=== PATIENT | male | born 1965 ===

== ENCOUNTER 2016-10-27 14:03 | Emergency (ER) | payer OTHER ==
[2016-10-27 14:03] VITALS: BMI 25.7
[2016-10-27 15:03] LABS: BASO # 0.1 K/uL (0.0-0.2); BASO % 0.6 % (0.0-2.0); EOS # 0.2 K/uL (0.0-0.7); EOS % 1.9 % (0.0-4.0); HEMATOCRIT 47.4 % (35.0-51.0); LYMPH # 1.8 K/uL (1.0-4.3); LYMPH % 20.8 % (20.0-40.0); MEAN CORPUSCULAR HEMOGLOBIN 30.8 pg (27.0-31.0); MEAN CORPUSCULAR HGB CONC 32.9 g/dL (33.0-37.0); MEAN PLATELET VOLUME 11.5 fL (7.2-11.7); MONO # 0.5 K/uL (0.0-0.8); MONO % 6.2 % (0.0-10.0); WHITE BLOOD COUNT 8.5 K/uL (4.8-10.8)
[2016-10-27 15:07] LABS: MEAN CELL VOLUME 93.4 fL (80.0-94.0)
--- NOTE | 2016-10-27 16:06 | C.PDOC ---
History Of Present Illness 51 y/o male brought in by textile technologist presents to the ED with complains of hallucinations, SI. Pt is not currently taking any psych meds. Pt denies any other complaints at this time. Time Seen by Provider: 10/27/16 14:31 Chief Complaint (Nursing): Psychiatric Evaluation History Per: Patient History/Exam Limitations: no limitations Current Symptoms Are (Timing): Still Present Severity: Mild Involuntary Hold By: Local Law Enforcement Recent travel outside of the [place]: No Past Medical History Reviewed: Historical Data, Nursing Documentation, Vital Signs Vital Signs: Last Vital Signs Temp 98.1 F 10/27/16 14:11 Pulse 80 10/27/16 14:11 Resp 20 10/27/16 14:11 BP 107/72 10/27/16 14:11 Pulse Ox 95 10/27/16 16:06 - Medical History PMH: Anxiety, Arthritis, Bipolar Disorder, Depression, Hepatitis, HTN (per meds) , Schizophrenia Family History: States: Unknown Family Hx - Social History Hx Alcohol Use: No Hx Substance Use: Yes (HEROIN) - Immunization History Hx Tetanus Toxoid Vaccination: No Hx Influenza Vaccination: No Hx Pneumococcal Vaccination: No Review Of Systems Except As Marked, All Systems Reviewed And Found Negative. Constitutional: Negative for: Fever Cardiovascular: Negative for: Chest Pain Respiratory: Negative for: Shortness of Breath Gastrointestinal: Negative for: Vomiting Psych: Positive for: Suicidal ideation Physical Exam - Physical Exam Appears: Non-toxic, No Acute Distress Skin: Warm, Dry, No Rash Head: Atraumatic, Normacephalic Neck: Normal ROM Chest: Symmetrical Cardiovascular: Rhythm Regular Respiratory: Normal Breath Sounds, No Rales, No Rhonchi, No Wheezing Gastrointestinal/Abdominal: Soft, No Tenderness Extremity: Bilateral: Atraumatic Neurological/Psych: Oriented x3, Normal Speech ED Course And Treatment - Laboratory Results Result Diagrams: 10/27/16 15:00 10/27/16 15:00 Lab Interpretation: Normal (never provided urine sample) O2 Sat by Pulse Oximetry: 95 (on room air) Pulse Ox Interpretation: Normal Reevaluation Time: 16:45 (remains asymtpmatic.) - Physician Consult Information Outcome Of Conversation: 1645: d/w Crisis Workers- pt medically and psychiatrically cleared for d/c. no SI/HI @ d/c and not a candidate for detox. Medical Decision Making Medical Decision Making: homeless, substance abuse, schizophrenia, no SI/HI Disposition Doctor Will See Patient In The: Office Counseled Patient/Family Regarding: Studies Performed, Diagnosis - Disposition Disposition: HOME/ ROUTINE Disposition Time: 16:48 Condition: GOOD - Clinical Impression Clinical Impression: Schizophrenia, Alcohol abuse - Scribe Statement The provider has reviewed the documentation as recorded by the Gustabo Sauer Provider Attestation: All medical record entries made by the Gustabo were at my direction and personally dictated by me. I have reviewed the chart and agree that the record accurately reflects my personal performance of the history, physical exam, medical decision making, and the department course for this patient. I have also personally directed, reviewed, and agree with the discharge instructions and disposition.
[2016-10-27 16:40] LABS: CHLORIDE 95 mmol/L (98-107); POTASSIUM 4.1 mmol/L (3.6-5.2); SODIUM 142 mmol/L (132-148)
[2016-10-27 16:42] LABS: ALB/GLOB RATIO 1.4 (1.0-2.1); ALKALINE PHOSPHATASE 56 U/L (38-126); AST/SGOT 34 U/L (17-59); BILIRUBIN,TOTAL 0.6 mg/dL (0.2-1.3); CARBON DIOXIDE 29 mmol/L (22-30); GFR AFRICAN-AMERICAN > 60; TOTAL PROTEIN 7.7 g/dL (6.3-8.3)
[2016-10-27 16:43] LABS: ALT/SGPT 17 U/L (21-72); BLOOD UREA NITROGEN 14 mg/dL (9-20); CALCIUM 9.6 mg/dl (8.6-10.4); GLUCOSE,RANDOM 85 mg/dL (75-110)
[2016-10-27 16:44] LABS: ALCOHOL SERUM < 10 mg/dl (0-10)
[2016-10-27 17:37] VITALS: BP 133/74; PULSE 74; RESP 18; TEMP 98.5; O2SAT 99
== END 2016-10-27 17:10 | disposition home or self-care (01) ==
LOC: C.ER 14:03
DX: F20.9 Schizophrenia, unspecified (principal); F10.10 Alcohol abuse, uncomplicated; Y90.0 Blood alcohol level of less than 20 mg/100 ml

== ENCOUNTER 2016-12-15 14:41 | Inpatient (IN) | payer MEDICAID, OTHER ==
[2016-12-15 14:41] VITALS: BMI 25.7
[2016-12-15 16:16] LABS: BASO # 0.1 K/uL (0.0-0.2); BASO % 0.6 % (0.0-2.0); EOS # 0.1 K/uL (0.0-0.7); EOS % 1.3 % (0.0-4.0); HEMATOCRIT 41.4 % (35.0-51.0); LYMPH # 1.2 K/uL (1.0-4.3); LYMPH % 13.9 % (20.0-40.0); MEAN CELL VOLUME 90.8 fL (80.0-94.0); MEAN CORPUSCULAR HEMOGLOBIN 30.5 pg (27.0-31.0); MEAN CORPUSCULAR HGB CONC 33.6 g/dL (33.0-37.0); MEAN PLATELET VOLUME 10.8 fL (7.2-11.7); MONO # 0.6 K/uL (0.0-0.8); MONO % 6.5 % (0.0-10.0); RED CELL DISTRIBUTION WIDTH 14.1 % (11.5-14.5); WHITE BLOOD COUNT 8.8 K/uL (4.8-10.8)
[2016-12-15 16:21] LABS: URINE BACTERIA RARE (<OCC); URINE BILIRUBIN NEGATIVE (NEGATIVE); URINE BLOOD NEGATIVE (NEGATIVE); URINE CALCIUM OXALATE CRYSTALS MOD /hpf (<OCC); URINE GLUCOSE (UA) NORMAL (Normal); URINE KETONE TRACE mg/dL (NEGATIVE); URINE LEUKOCYTE ESTERASE NEG Leu/uL (Negative); URINE PROTEIN NEGATIVE (NEGATIVE); WBC URINE 5 /hpf (0-5)
[2016-12-15 16:22] LABS: CHLORIDE 100 mmol/L (98-107); POTASSIUM 3.5 mmol/L (3.6-5.2); SODIUM 138 mmol/L (132-148)
[2016-12-15 16:23] LABS: ALB/GLOB RATIO 1.3 (1.0-2.1); ALKALINE PHOSPHATASE 53 U/L (38-126); AST/SGOT 27 U/L (17-59); BILIRUBIN,TOTAL 0.7 mg/dL (0.2-1.3); CARBON DIOXIDE 28 mmol/L (22-30); GFR AFRICAN-AMERICAN > 60; TOTAL PROTEIN 7.5 g/dL (6.3-8.3)
[2016-12-15 16:24] LABS: ALCOHOL SERUM < 10 mg/dl (0-10); ALT/SGPT 20 U/L (21-72); BLOOD UREA NITROGEN 15 mg/dL (9-20); CALCIUM 8.6 mg/dl (8.6-10.4); GLUCOSE,RANDOM 127 mg/dL (75-110)
[2016-12-15 16:30] LABS: URINE COLOR YELLOW (YELLOW)
--- NOTE | 2016-12-15 16:32 | C.PDOC ---
History Of Present Illness 51 y/o male pmhx depression and anxiety presents to the ED with complains of feeling depressed x1.5 weeks and stating he wants to kill himself. Pt plans on overdosing on pills. Pt states he hasn't eaten much in the past week and has been shaking a lot lately; used to take klonopin 0.5 mg for anxiety, none currently. Pt admits to alcohol use, last 3 days ago and heroin last used last night. Pt denies fever, trauma, headache, chest pain, abdominal pain or any other complaints. No PMD or psychiatrist. Time Seen by Provider: 12/15/16 15:04 Chief Complaint (Nursing): Psychiatric Evaluation History Per: Patient History/Exam Limitations: no limitations Onset/Duration Of Symptoms: Days Current Symptoms Are (Timing): Still Present Modifying Factor(s): Alcohol, Narcotics Severity: Moderate Associated Symptoms: Depression, Suicidal Thoughts, Suicidal Plan Involuntary Hold By: None Recent travel outside of the [place]: No Past Medical History Reviewed: Historical Data, Nursing Documentation, Vital Signs Vital Signs: Last Vital Signs Temp 98.0 F 12/15/16 14:53 Pulse 93 H 12/15/16 14:53 Resp 18 12/15/16 15:20 BP 107/73 12/15/16 14:53 Pulse Ox 98 12/15/16 18:03 - Medical History PMH: Anxiety, Arthritis, Bipolar Disorder, Depression, Hepatitis, HTN (per meds) , Schizophrenia Family History: States: Unknown Family Hx - Social History Hx Alcohol Use: No Hx Substance Use: Yes (pt denies) - Immunization History Hx Tetanus Toxoid Vaccination: No Hx Influenza Vaccination: No Hx Pneumococcal Vaccination: No Review Of Systems Except As Marked, All Systems Reviewed And Found Negative. Constitutional: Negative for: Fever, Chills Cardiovascular: Negative for: Chest Pain Respiratory: Negative for: Shortness of Breath Gastrointestinal: Negative for: Vomiting, Abdominal Pain Musculoskeletal: Positive for: Other (several month h/o atraumatic b/l posterior ankle pain) Neurological: Negative for: Headache Psych: Positive for: Depression, Suicidal ideation Physical Exam - Physical Exam Appears: Non-toxic, Other (mild emotional distress) Skin: Warm, Dry, No Rash Head: Atraumatic, Normacephalic Oral Mucosa: Dry Neck: Normal, Normal ROM, Trachea Midline, Supple Chest: Symmetrical Cardiovascular: Rhythm Regular, No Edema, No Murmur Respiratory: Normal Breath Sounds, No Decreased Breath Sounds, No Accessory Muscle Use, No Rales, No Rhonchi, No Wheezing Gastrointestinal/Abdominal: Normal Exam, Bowel Sounds (normal), Soft, No Tenderness, No Distention, No Guarding, No Rebound Back: Normal Inspection, No CVA Tenderness, No Vertebral Tenderness Extremity: Normal ROM, Tenderness (to the posterior ankles b/l mostly to the achilles tendon), No Swelling Extremity: Bilateral: Atraumatic Neurological/Psych: Oriented x3, Normal Speech, Other (anxious, depressed mood) ED Course And Treatment - Laboratory Results Result Diagrams: 12/15/16 16:08 12/15/16 16:08 O2 Sat by Pulse Oximetry: 98 (room air) Pulse Ox Interpretation: Normal Progress Note: plan: labs, UA, klonopin, CRISIS evaluation Medical Decision Making Medical Decision Makin yo M presents to the ER for psych evaluation, feels depressed with (+) SI. Labs ordered. Pending crisis evaluation. Given klonipin 0.5 mg po and naprosyn 500 mg po. Labs reviewed. K 3.5, given KCL 40 mEq po. Patient is medically cleared for crisis evaluation. Disposition - Disposition Disposition: HOSPITALIZED Disposition Time: 18:00 Condition: STABLE - Clinical Impression Clinical Impression: Depression - PA / GUN MECHANIC / Resident Statement MD/DO has reviewed & agrees with the documentation as recorded. - Scribe Statement The provider has reviewed the documentation as recorded by the Scribaudie Sauer All medical record entries made by the Guillermoibe were at my direction and personally dictated by me. I have reviewed the chart and agree that the record accurately reflects my personal performance of the history, physical exam, medical decision making, and the department course for this patient. I have also personally directed, reviewed, and agree with the discharge instructions and disposition.
[2016-12-15] MEDS ORDERED: Potassium Chloride 20 mEq/15 ml LIQ UD PO STA (16:47)
[2016-12-15] MEDS ORDERED: Potassium Chloride 20 mEq ER Tab PO ONE (16:53)
[2016-12-15] MEDS ORDERED: Naproxen 550 mg Tab PO STA (17:59)
[2016-12-15] MEDS ORDERED: Naproxen 550 mg Tab PO ONE (18:18)
[2016-12-15 18:23] VITALS: O2SAT 99
--- NOTE | 2016-12-16 15:46 | PCM.PSYCH ---
Initial Psychiatric Evaluation - Initial Psychiatric Evaluation Type of Admission: Voluntary Legal Status: Capacity Chief Complaint (in patient's own words): "I don't feel good." History of Present Illness and Precipitating Events: The pt is seen, chart reviewed, case discussed with staff. This is a 51yo male who is here for opiate abuse and depression. 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 He states that he is single, lives alone, and has 1 child. He also says that he is on probation and his special police officer is the one who told him to go to detox. The patient states that he uses 10-15 bags of heroin a day and has been injecting since the age of 20. He denies other drugs and alcohol use but smokes 3-4 cigarettes a day. The patient states that he has the shakes and wanted to OD on pills. He has a prior suicide attempt in which he cut his hand. He says that 1 week ago he got depressed and took 15 pills but got nausea and vomited. He states that he has visual and auditory hallucinations which make him paranoid and sometimes feels like people are out to get him. Currently he states that hes not feeling good with the dose of methadone he took and is complaining of hot/cold sweats, nausea , diarrhea, decreased appetite, and weight loss. Past psych history: Schizophrenia, Suicide attempt Past medical history: Liver disease (Hepatitis?), Visual impairment (right eye) , Kidney infections Family psych history: Aunt- Schizophrenia, aggressive and violent behavior Hospitalizations: For kidney infections 4-5 times Current Medications: Active Medications Generic Name Dose Route Start Last Admin Trade Name Freq PRN Reason Stop Dose Admin Chlordiazepoxide 25 mg 12/15/16 19:17 12/15/16 21:04 Librium PO 25 mg Q6 PRN Administration s/s withdrawals Gabapentin 100 mg 12/16/16 10:00 12/16/16 13:51 Neurontin PO 100 mg TID STEPHANIE Administration Hydroxyzine HCl 50 mg 12/15/16 19:17 12/16/16 13:51 Atarax PO 50 mg Q6 PRN Administration Anxiety Ibuprofen 600 mg 12/15/16 19:17 Motrin Tab PO Q6 PRN Pain, moderate (4-7) Methadone HCl 10 mg 12/17/16 10:00 Methadone PO 12/20/16 09:59 Q24H STEPHANIE Taper Quetiapine Fumarate 50 mg 12/15/16 22:00 12/15/16 21:04 Seroquel PO 50 mg HS STEPHANIE Administration Sertraline HCl 50 mg 12/16/16 10:00 12/16/16 09:57 Zoloft PO 50 mg DAILY STEPHANIE Administration Past Psychiatric History - Past Psychiatric History History of ETOH/Drug Use: He denies alcohol use but admits to heroin use. History of Family Illness: Aunt has Schizophrenia and aggressive behavior. Pertinent Medical Hx (Current Medical&Sleep Prob, Allergies): Allergies Allergy/AdvReac Type Severity Reaction Status Date / Time No Known Allergies Allergy Verified 12/15/16 14:53 clonazePAM [Klonopin] 0.5 mg PO DAILY PRN #10 tab 04/26/15 Gabapentin [Neurontin] 300 mg PO DAILY 05/15/15 QUEtiapine [SEROquel] 200 mg PO HS 12/15/16 Sertraline [Zoloft] 100 mg PO DAILY 12/15/16 Review of Systems - Psychiatric Psychiatric: Auditory Hallucinations, Change in Appetite, Depression, Difficulty Concentrating, Hallucinations, Visual Hallucinations. absent: Homicidal Ideation, Suicidal Ideation Mental Status Examination - Personal Presentation Personal Presentation: Looks older than stated age - Affect Affect: Constricted - Motor Activity Motor Activity: Calm - Reliability in Providing Information Reliability in Providing Information: Fair - Speech Speech: Organized - Mood Mood: Depressed - Formal Thought Process Formal Thought Process: Hallucinations, Paranoia - Hallucinations/Delusions Hallucinations: Visual, Auditory - Cognitive Functions Orientation: Person, Place, Situation, Time Attention/Concentration: Attentive Estimate of Intelligence: Average Judgement: Intact, as evidence by: Insight regarding need for hospitalization Memory: Recent intact, as evidence by: Ability to recall events of the day, Remote intact, as evidenced by: Abilit to recall sig. life events - Risk Risk: Diminished functioning - Strength & Assets Inventory Strength & Assets Inventory: Cooperative - Limitations Limitations: Living alone DSM 5 DX - DSM 5 DSM 5 Diagnosis: Major Depressive d/o - recurrent, severe with psychotic features Opioid withdrawal Opioid use d/o - severe Alcohol use d/o - Recommended/Plan of Treatment Treatment Recommendations and Plan of Treatment: Support and psychoeducation daily Attend groups and activities daily After care planning by LETICIA [place] and CBT Methadone taper Seroquel for psychotic features Zoloft for depression 34 min Projected ELOS: 6 days Prognosis: Good with treatment - Smoking Cessation Smoking Cessation Initiated: Yes
--- NOTE | 2016-12-17 15:39 | PCM.PYCHPN ---
Psychiatric Progress Note - Psychiatric Progress Note Patient seen today, length of contact: 17 min Patient Chief Complaint: "I am not sleeping well" Problems Identified/Issues Discussed: The pt is seen, chart reviewed, case discussed with staff. He states that he is having trouble staying asleep at night but is otherwise doing fine. He also complains of tendonitis in his lower extremities. He denies any hallucinations and requested an increased dose of Seroquel. The pt is compliant with medications and reports no side-effects. Symptoms are improving but needs more time to stabilize. After care discussed, support and psychoeducation given. Medication Change: Yes (detox changes, increase seroquel) Medical Record Reviewed: Yes Mental Status Examination - Cognitive Function Orientation: Person, Place, Situation, Time Memory: Intact Attention: WNL Concentration: WNL Association: WNL Fund of Knowledge: Poor - Mood Mood: Depressed - Affect Affect: Constricted - Speech Speech: Appropriate - Formal Thought Process Formal Thought Process: No Impairment - Suicidal Ideation Suicidal Ideation: No - Homicidal Ideation Homicidal Ideation: No Goal/Treatment Plan - Goal/Treatment Plan Need for Continued Stay: Discharge may exacerbated symptoms, Severe functional impairment Progress Toward Problem(s) and Goals/Treatment Plan: Support and psychoeducation daily Attend groups and activities daily After care planning by LETICIA [place] and CBT Methadone taper Seroquel for psychotic features and sleep, 100 mg today, 200 tomorrow Zoloft for depression
--- NOTE | 2016-12-18 14:51 | PCM.PYCHPN ---
Psychiatric Progress Note - Psychiatric Progress Note Patient seen today, length of contact: 17 min Patient Chief Complaint: "I feel 'so-so'" Problems Identified/Issues Discussed: The pt is seen, chart reviewed, case discussed with staff. This is a 51yo male who is here for opiate abuse and depression. The patient states that he uses 10-15 bags of heroin a day and has been injecting since the age of 20. He denies other drugs and alcohol use but smokes 3-4 cigarettes a day. He Reports withdrawal symptoms including poor energy, anxiety and body aches. He complains his anxiety is becoming too much. He says he only slept a little yesterday, having woken up 3 times last night from anxiety. He is experiencing the shakes, is easily startled by noise, and states that his medications arent helping him. The patient appears to be distracted, disheveled , and generally uncomfortable. The pt is compliant with medications and reports no side-effects. Symptoms are improving but needs more time to stabilize. After care discussed, support and psychoeducation given. Medication Change: Yes (detox changes, increase seroquel) Medical Record Reviewed: Yes Mental Status Examination - Cognitive Function Orientation: Person, Place, Situation, Time Memory: Intact Attention: WNL Concentration: WNL Association: WNL Fund of Knowledge: Poor - Mood Mood: Depressed - Affect Affect: Constricted - Speech Speech: Appropriate - Formal Thought Process Formal Thought Process: No Impairment - Suicidal Ideation Suicidal Ideation: No - Homicidal Ideation Homicidal Ideation: No Goal/Treatment Plan - Goal/Treatment Plan Need for Continued Stay: Discharge may exacerbated symptoms, Severe functional impairment Progress Toward Problem(s) and Goals/Treatment Plan: Support and psychoeducation daily Attend groups and activities daily After care planning by LETICIA [place] and CBT Methadone taper Seroquel 200 mg Zoloft for depression - Smoking Cessation Smoking Cessation Initiated: No
--- NOTE | 2016-12-19 14:08 | PCM.PYCHPN ---
Psychiatric Progress Note - Psychiatric Progress Note Patient seen today, length of contact: 15 minutes Patient Chief Complaint: I'm not feeling better, I still feel anxiety in the morning. Problems Identified/Issues Discussed: Patient seen. Chart reviewed. Case discussed with staff. Issues related to illness and treatment were discussed with the patient. Patient reported not feeling better specialty in the morning. Reported he wakes up every day in the morning with anxiety. According to patient his anxiety is very high in the morning after breakup. Otherwise feeling little better. Still patient who is disheveled. Patient may need more time for stabilization. At the time of evaluation, patient was awake alert oriented 3, had no delusions, no auditory or visual hallucinations, no suicidal ideations homicidal ideations. Medical Problems: Liver disease (Hepatitis?), Visual impairment (right eye), Kidney infections Diagnostic Results: Reviewed DSM 5 Symptoms Update: Some improvement with treatment Medication Change: No Medical Record Reviewed: Yes Mental Status Examination - Cognitive Function Orientation: Person, Place, Situation, Time Memory: Intact Attention: WNL Concentration: WNL Association: WNL Fund of Knowledge: WNL Decription of patient's judgement and insights: Better - Mood Mood: Depressed - Affect Affect: Other (Appropriate) - Speech Speech: Appropriate - Formal Thought Process Formal Thought Process: No Impairment Psychotic Thoughts and Behaviors: None - Suicidal Ideation Suicidal Ideation: No - Homicidal Ideation Homicidal Ideation: No Goal/Treatment Plan - Goal/Treatment Plan Need for Continued Stay: Remain at risks for inpatient hospitalization, Discharge may exacerbated symptoms, Severe functional impairment Progress Toward Problem(s) and Goals/Treatment Plan: Patient education Supportive therapy Will increase dose of Zoloft to 100 mg from 50 mg continue rest of the treatment as before Wants to go to [facility] after discharge from the hospital for follow-up appointment Estimated Date of D/C: 12/22/16 - Smoking Cessation Smoking Cessation Initiated: No
--- NOTE | 2016-12-20 13:22 | PCM.PYCHPN ---
Psychiatric Progress Note - Psychiatric Progress Note Patient seen today, length of contact: 15 minutes Patient Chief Complaint: I'm not feeling better, I still feel anxiety in the morning. Problems Identified/Issues Discussed: Patient seen. Chart reviewed. Case discussed with staff. Issues related to illness and treatment were discussed with the patient. Patient reported not feeling better specialty in the morning. Reported he wakes up every day in the morning with anxiety. Explored further in patient reported that he walks a lot, cannot sit still and that makes him nervous which she thinks is anxiety. It appears that patient has EPS/akathisia .we will start Cogentin and observe. Otherwise feeling little better. Still patient who is disheveled. Patient may need more time for stabilization. At the time of evaluation, patient was awake alert oriented 3, had no delusions, no auditory or visual hallucinations, no suicidal ideations homicidal ideations. Medical Problems: Liver disease (Hepatitis?), Visual impairment (right eye), Kidney infections Diagnostic Results: Review DSM 5 Symptoms Update: Improving with treatment Medication Change: No Medical Record Reviewed: Yes Mental Status Examination - Cognitive Function Orientation: Person, Place, Situation, Time Memory: Intact Attention: WNL Concentration: WNL Association: [facility] Fund of Knowledge: [facility] Decription of patient's judgement and insights: Fair - Mood Mood: Depressed (Less than before) - Affect Affect: Other (Appropriate) - Speech Speech: Appropriate - Formal Thought Process Formal Thought Process: No Impairment Psychotic Thoughts and Behaviors: None - Suicidal Ideation Suicidal Ideation: No - Homicidal Ideation Homicidal Ideation: No Goal/Treatment Plan - Goal/Treatment Plan Need for Continued Stay: Remain at risks for inpatient hospitalization, Discharge may exacerbated symptoms, Severe functional impairment Progress Toward Problem(s) and Goals/Treatment Plan: Patient education Supportive therapy Continue treatment as before We will start Cogentin 1 mg twice a day Wants to go to [facility] after discharge from the hospital for follow-up appointment Estimated Date of D/C: 12/22/16 - Smoking Cessation Smoking Cessation Initiated: No
--- NOTE | 2016-12-21 16:58 | PCM.PYCHPN ---
Psychiatric Progress Note - Psychiatric Progress Note Patient seen today, length of contact: 15 minutes Patient Chief Complaint: I'm feeling little better better, I still feel anxiety in the morning. Problems Identified/Issues Discussed: Patient seen. Chart reviewed. Case discussed with staff. Issues related to illness and treatment were discussed with the patient. Patient reported not feeling better specialty in the morning. Patient reported that he feels little better after Cogentin but still feels anxiety. Education provided to the patient about medication. At the time of evaluation, patient was awake alert oriented 3, had no delusions, no auditory or visual hallucinations, no suicidal ideations homicidal ideations. Medical Problems: Liver disease (Hepatitis?), Visual impairment (right eye), Kidney infections Diagnostic Results: Review DSM 5 Symptoms Update: Improving with treatment Medication Change: No Medical Record Reviewed: Yes Mental Status Examination - Cognitive Function Orientation: Person, Place, Situation, Time Memory: Intact Attention: WNL Concentration: WNL Association: WNL Fund of Knowledge: WNL Decription of patient's judgement and insights: Fair - Mood Mood: Depressed (Less than before) - Affect Affect: Other (Appropriate) - Speech Speech: Appropriate - Formal Thought Process Formal Thought Process: No Impairment Psychotic Thoughts and Behaviors: None - Suicidal Ideation Suicidal Ideation: No - Homicidal Ideation Homicidal Ideation: No Goal/Treatment Plan - Goal/Treatment Plan Need for Continued Stay: Remain at risks for inpatient hospitalization, Discharge may exacerbated symptoms, Severe functional impairment Progress Toward Problem(s) and Goals/Treatment Plan: Patient education Supportive therapy Continue treatment as before Wants to go to [facility] after discharge from the hospital for follow-up treatment Estimated Date of D/C: 12/22/16 - Smoking Cessation Smoking Cessation Initiated: No
--- NOTE | 2016-12-22 13:59 | PCM.PYCHPN ---
Psychiatric Progress Note - Psychiatric Progress Note Patient seen today, length of contact: 16 min Patient Chief Complaint: "Anxious" Problems Identified/Issues Discussed: The pt is seen, chart reviewed, case discussed with staff. The pt is compliant with medications and reports no side-effects. Symptoms are improving but needs more time to stabilize. After care discussed, [facility] is pending. No word yet from them. Support and psychoeducation given. Medication Change: No Medical Record Reviewed: Yes Mental Status Examination - Cognitive Function Orientation: Person, Place, Situation, Time Memory: Intact Attention: WNL Concentration: WNL Association: WNL Fund of Knowledge: WNL - Mood Mood: Depressed (Less than before) - Affect Affect: Other (Appropriate) - Speech Speech: Appropriate - Formal Thought Process Formal Thought Process: No Impairment - Suicidal Ideation Suicidal Ideation: No - Homicidal Ideation Homicidal Ideation: No Goal/Treatment Plan - Goal/Treatment Plan Need for Continued Stay: Discharge may exacerbated symptoms, Severe functional impairment Progress Toward Problem(s) and Goals/Treatment Plan: Support and psychoeducation daily Attend groups and activities daily After care planning by LETICIA [place] and CBT Methadone taper Seroquel for psychotic features and sleep, 200 mg now Zoloft for depression 100 mg now Estimated Date of D/C: 12/23/16 If changed, why: not ready - Smoking Cessation Smoking Cessation Initiated: Yes
[2016-12-23 08:02] VITALS: BP 119/75; PULSE 54; RESP 20; TEMP 97.3
--- NOTE | 2016-12-23 09:38 | PCM.PYCHDC ---
Mental Status Examination - Mental Status Examination Orientation: Person, Place, Situation, Time Memory: Intact Mood: Anxious Affect: Constricted Speech: Appropriate Attention: WNL Concentration: Poor Association: WNL Fund of Knowledge: WNL Formal Thought Process: No Impairment Suicidal Ideation: No Current Homicidal Ideation?: No Discharge Summary - Discharge Note Reason for Hospitalization: Feeling depressed, suicidal Psychiatric History (includes Medical, Family, Personal Hx): Previous admissions Consultations:: List each consultation separately and include: 1. Reason for request. 2. Findings. 3. Follow-up Summary of Hospital Course include:: 1. Description of specific treatment plan utilized for patients during their course of treatmen. 2. Summarize the time- course for resolution of acute symptoms and/or regressed behaviors. 3. Describe issues identified and worked on during hospitalization. 4. Describe medication utilized. 5. Describe medical problems identified and treated. 6. Reassessment of suicide risk Summary of Hospital Course: The pt is seen, chart reviewed, case discussed with staff. On admission: This is a 51yo male who is here for opiate abuse and depression. 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 He states that he is single, lives alone, and has 1 child. He also says that he is on probation and his energy control officer is the one who told him to go to detox. The patient states that he uses 10-15 bags of heroin a day and has been injecting since the age of 20. He denies other drugs and alcohol use but smokes 3-4 cigarettes a day. The patient states that he has the shakes and wanted to OD on pills. He has a prior suicide attempt in which he cut his hand. He says that 1 week ago he got depressed and took 15 pills but got nausea and vomited. He states that he has visual and auditory hallucinations which make him paranoid and sometimes feels like people are out to get him. Currently he states that hes not feeling good with the dose of methadone he took and is complaining of hot/cold sweats, nausea , diarrhea, decreased appetite, and weight loss. Past psych history: Schizophrenia, Suicide attempt Past medical history: Liver disease (Hepatitis?), Visual impairment (right eye) , Kidney infections Family psych history: Aunt- Schizophrenia, aggressive and violent behavior Hospitalizations: For kidney infections 4-5 times Hospital course: The pt is seen daily, he attended groups and activities [place] and CBT used Meds adjusted He remained anxious but cordial and pleasant He was supposed to go to [facility] but they did not provide a bed yet, so also contacted [facility]. The pt is not homeless and he will follow up from home if he cannot get in today. - Final Diagnosis (DSM 5) Condition upon Discharge: STABLE DSM 5: Major Depressive d/o - recurrent, severe with psychotic features Opioid withdrawal Opioid use d/o - severe Alcohol use d/o Disposition: REHAB FACILITY/REHAB UNIT Follow-up Treatment Plan: Continue meds below Attend rehab ([facility] or [facility] - he will follow up) Return to ER if needed, ie anabell/homi, agitated Use relapse prevention skills Stay away from drugs, alcohol Attend [facility] MAT, ie Vivitrol, suboxone, etc Prescriptions/Medication Reconciliation: Gabapentin [Neurontin] 100 mg PO TID #90 cap QUEtiapine [SEROquel] 200 mg PO HS #30 tab Sertraline [Zoloft] 100 mg PO DAILY #30 tab
== END 2016-12-23 13:25 | DRG 430 ==
LOC: C.ER 14:41 → C.5E 18:33
PROVIDERS: ADMIT Psychiatry & Neurology Psychiatry; ATTEND Psychiatry & Neurology Psychiatry
PROC: GZHZZZZ Group Psychotherapy (ICD-10-PCS; principal; 2016-12-15)
PROC: GZ58ZZZ Individual Psychotherapy, Cognitive-Behavioral (ICD-10-PCS; 2016-12-15)
PROC: GZ56ZZZ Individual Psychotherapy, Supportive (ICD-10-PCS; 2016-12-15)
DX: F31.5 Bipolar disorder, current episode depressed, severe, with psychotic features (principal); R45.851 Suicidal ideations; K75.9 Inflammatory liver disease, unspecified; F10.99 Alcohol use, unspecified with unspecified alcohol-induced disorder; F11.23 Opioid dependence with withdrawal; I10 Essential (primary) hypertension; F41.9 Anxiety disorder, unspecified; F20.9 Schizophrenia, unspecified; M19.90 Unspecified osteoarthritis, unspecified site; F17.210 Nicotine dependence, cigarettes, uncomplicated; Z81.8 Family history of other mental and behavioral disorders